=== PATIENT | male | born 1955 | race Caucasian/White ===

== ENCOUNTER 2016-08-13 14:34 | Observation (INO) | payer MEDICARE ==
[~2016-08-13] VITALS: Ht 190.5 cm; Wt 107.0 kg
--- NOTE | 2016-08-13 14:43 | PHYS DOC ---
General Chief Complaint: cp Stated Complaint: NA Time Seen by MD: 14:36 Source: patient Exam Limitations: no limitations Problems: History of Present Illness Initial Comments Patient is 61-year-old male sent to the ED by Dr. Solis for chest pain. Patient states he had influenza infection approximately one month ago. Since that time he's had fairly constant anterior chest pain described as achy and sharp moderate in intensity and worse with activity relieved with rest. He states he's also had dyspnea on exertion for approximately the same time period , he is very active and [place]. Lately just walking out to the bar and has winded him a dramatic change from before his influenza infection. He has chronic left shoulder pain is so his left shoulder neck and arm are always achy according to him he's had no nausea or diaphoresis palpitations dizziness headache or focal weakness. No history of chest pains in the past no pre-arrival treatment patient states he is normally healthy. Timing/Duration: constant, other Severity: moderate Modifying Factors: worse with movement, improves with rest Associated Symptoms: chest pain, shortness of breath Allergies: Coded Allergies: codeine (Verified Allergy, Intermediate, 08/13/16) morphine (Verified Allergy, Intermediate, 08/13/16) Past Medical History Medical History: other (diverticulitis, GERD, hypertension) Surgical History: other (colectomy with colostomy and ileostomy both been reversed, appendectomy left shoulder reconstruction) Social History Smoker: non-smoker Alcohol: none Review of Systems Constitutional: denies chills, denies diaphoresis, denies fever, malaise Respiratory: see HPI, denies cough, denies wheezing Cardiovascular: see HPI, denies palpitations, denies syncope Gastrointestinal: denies abdominal pain, denies diarrhea, denies nausea, denies vomiting Genitourinary: denies dysuria, denies frequency, denies hematuria Musculoskeletal: see HPI Psychiatric/Neurological: denies headache, denies numbness, denies paresthesia Physical Exam General Appearance: no apparent distress, obese Eyes: bilateral eye normal inspection, bilateral eye PERRL, bilateral eye EOMI Ear, Nose, Throat: hearing grossly normal, normal ENT inspection, normal pharynx Neck: non-tender, supple Respiratory: normal breath sounds, no respiratory distress Cardiovascular: normal peripheral pulses, regular rate, rhythm (chest pain is nonreproducible) Gastrointestinal: non tender, soft Back: no CVA tenderness, no vertebral tenderness Extremities: non-tender, normal inspection, no pedal edema Neurologic/Psychiatric: evaluation assistant II-XII nml as tested, no motor/sensory deficits, alert, normal mood/affect, oriented x 3 Skin: normal color, warm/dry Orders, Labs, Meds EKG: Normal sinus rhythm 68 bpm, nonspecific flattening of the T waves in lead III and aVF no STEMI interpreted by me PATIENT: KIMBERLY ALAN ACCOUNT: [id number] : 1955 LOCATION: ER AGE: 61 SEX: M EXAM STATUS: REG ER ORD. PHYSICIAN: RANDY KAPLAN DO REASON: cp PROCEDURE: PORTABLE CHEST 1V Portable chest, 08/13/2016: History: Chest pain Comparison is made to a study from 07/12/2009. The heart size and pulmonary vascularity are within normal limits. No pulmonary infiltrates are seen. There is no evidence of pleural fluid. IMPRESSION: No acute cardiopulmonary abnormality is detected. DICTATED AND SIGNED BY: ENRIQUETA NARAYAN MD DATE: 08/13/16 1520 CC: BEATRIZ HALEY MD; RANDY KAPLAN DO ~ ED workup is reassuring. Initial blood pressure 169/115, it did improve to 150 over 90s through the ED course. No new or progressive symptoms. I recommended inpatient evaluation for chest pain and dyspnea on exertion he'll need serial cardiac enzymes and echocardiogram plus or minus a stress test tomorrow after cardiology evaluation. Patient is agreeable I discussed this with Dr. Valdivia who accepts observation telemetry admission. Departure Disposition: ADMITTED INPATIENT Diagnosis: chest pain, hypertension Condition: STABLE Additional Instructions: Inpatient admission and Dr. Valdivia is accepting RANDY KAPLAN DO Aug 13, 2016 14:43
[2016-08-13] MEDS ORDERED: NITROGLYCERIN SUBLINGUAL 0.4 MG BOTTLE OF 25. SL PRN ×2 (15:15→17:00)
--- NOTE | 2016-08-13 15:24 | RAD ---
Portable chest, 08/13/2016: History: Chest pain Comparison is made to a study from 07/12/2009. The heart size and pulmonary vascularity are within normal limits. No pulmonary infiltrates are seen. There is no evidence of pleural fluid. IMPRESSION: No acute cardiopulmonary abnormality is detected.
[2016-08-13 15:26] LABS: BASO % 1 % (0-3); EOS # 0.2 x10^3/uL (0.0-0.7); EOS % 4 % (0-3); HEMATOCRIT 42.1 % (39.0-53.0); HEMOGLOBIN 14.4 g/dL (13.0-17.5); LYMPH # 2.8 x10^3/uL (1.0-4.8); LYMPH % 41 % (24-48); MEAN CORPUSCULAR HEMOGLOBIN 29 pg (25-35); MEAN CORPUSCULAR HGB CONC 34 g/dL (31-37); MEAN CORPUSCULAR VOLUME 85 fL (79-100); MONO # 0.8 x10^3/uL (0.0-1.1); MONO % 11 % (0-9); NEUT % 44 % (31-73); PLATELET COUNT 201 x10^3/uL (140-400); RED BLOOD COUNT 4.94 x10^6/uL (4.30-5.70); RED CELL DISTRIBUTION WIDTH 13.8 % (11.5-14.5); WHITE BLOOD COUNT 6.8 x10^3/uL (4.0-11.0)
[2016-08-13 15:44] LABS: ALBUMIN 3.9 g/dL (3.4-5.0); ALBUMIN/GLOBULIN RATIO 1.1 (1.0-1.7); CALCIUM 8.6 mg/dL (8.5-10.1); CREATININE 1.2 mg/dL (0.7-1.3); POTASSIUM 3.9 mmol/L (3.5-5.1); TOTAL BILIRUBIN 0.3 mg/dL (0.2-1.0); TOTAL PROTEIN 7.3 g/dL (6.4-8.2)
[2016-08-13] MEDS ORDERED: ONDANSETRON PF 4 MG/2 ML VIAL. IV PRN ×2 (17:00→18:00)
[2016-08-13] MEDS ORDERED: ACETAMINOPHEN 325 MG TABLET PO PRN (17:00)
[2016-08-13 17:39] VITALS: BP 174/101
[2016-08-13] MEDS ORDERED: KETOROLAC 30 MG/ML VIAL. IV PRN (18:00)
[2016-08-13 19:35] VITALS: BP 160/94
[2016-08-13] MEDS ORDERED: ESOM40CA PO (19:47)
[2016-08-13] MEDS ORDERED: LISI10TA2 PO (19:47)
[2016-08-13] MEDS ORDERED: TAMS0.4C97 PO (19:47)
[2016-08-13] MEDS ORDERED: TAMSULOSIN 0.4 MG CAP.ER.24H. PO SCH (21:00)
[2016-08-13 22:47] VITALS: BP 104/64
[2016-08-13] MEDS ORDERED: FISH12002 PO (23:36)
[2016-08-13] MEDS ORDERED: PRAS1TAB2 PO (23:36)
[2016-08-13] MEDS ORDERED: CHOL500016 PO (23:36)
[2016-08-13] MEDS ORDERED: ASPI-630 PO (23:36)
[2016-08-14 04:23] LABS: BASO % 1 % (0-3); EOS # 0.3 x10^3/uL (0.0-0.7); EOS % 5 % (0-3); HEMATOCRIT 40.7 % (39.0-53.0); HEMOGLOBIN 13.8 g/dL (13.0-17.5); LYMPH # 2.2 x10^3/uL (1.0-4.8); LYMPH % 39 % (24-48); MEAN CORPUSCULAR HEMOGLOBIN 29 pg (25-35); MEAN CORPUSCULAR HGB CONC 34 g/dL (31-37); MEAN CORPUSCULAR VOLUME 86 fL (79-100); MONO # 0.6 x10^3/uL (0.0-1.1); MONO % 11 % (0-9); NEUT # 2.5 x10^3uL (1.8-7.7); NEUT % 45 % (31-73); PLATELET COUNT 185 x10^3/uL (140-400); RED BLOOD COUNT 4.73 x10^6/uL (4.30-5.70); WHITE BLOOD COUNT 5.6 x10^3/uL (4.0-11.0)
--- NOTE | 2016-08-14 04:43 | EKG ---
[address] [address] Test Date: 2016-08-13 Test Time: 14:43:37 Pat Name: KIMBERLY ALAN Department: Room: 119 A Gender: M Drug Safety Physician: : 1955 Requested By: RANDY KAPLAN Order Number: [id number] Reading MD: Aldo De Anda Measurements Intervals [place] Rate: 68 P: 21 HI: 162 QRS: 26 QRSD: 86 T: 18 QT: 364 QTc: 391 Interpretive Statements SINUS RHYTHM NONSPECIFIC ST-T WAVE CHANGES. CONSISTENT WITH INFERIOR INFARCT PROBABLY OLD RI6.01 Unconfirmed report No previous ECG available for comparison Electronically Signed On 08-15-2016 9:55:06 CDT by Aldo De Anda
[2016-08-14 05:10] LABS: ALBUMIN 3.4 g/dL (3.4-5.0); CALCIUM 8.4 mg/dL (8.5-10.1); CREATININE 1.2 mg/dL (0.7-1.3); POTASSIUM 4.4 mmol/L (3.5-5.1); TOTAL BILIRUBIN 0.4 mg/dL (0.2-1.0); TOTAL PROTEIN 6.7 g/dL (6.4-8.2)
[2016-08-14 05:59] VITALS: BP 145/92
[2016-08-14] MEDS ORDERED: ASPIRIN 325 MG TABLET PO ONE (09:00)
[2016-08-14] MEDS ORDERED: LISINOPRIL 10 MG TABLET PO SCH (09:00)
[2016-08-14] MEDS ORDERED: PANTOPRAZOLE 40 MG TABLET. PO SCH (09:00)
[2016-08-14 10:42] VITALS: BP 136/84
--- NOTE | 2016-08-14 12:40 | PDOC2 ---
[facility]AN [employer] 08/14/16 1240: CONSULT Date of Admission DATE: 08/14/16 TIME: 12:27 Reason for Consult: Chest pain History of Present Illness This is a pleasant 61-year-old male who presented to his primary care doctor's office yesterday with chief complaint of chest discomfort. He has a past medical history of hypertension, gastroesophageal reflux disease and diverticulitis. Approximately a month ago he developed the flow and has not felt back to full capacity since that time. Over the last month he has had severe chest pain into his anterior wall that could feel like a sharp or stabbing sensation, it feels like a previous episode of pleurisy that he had in the past so he was not so concerned. He has also had left shoulder problems that has caused chest wall pain for long time that he tended to believe his chest pain on. But over this same time he has been more fatigued and not been able to be as active. When [place] he would notice that he would be short of breath and cannot do what he was even 6 months ago. He has also noticed that he has been having more headaches and that he gets a sensation of pressure in his head. At times the chest discomfort can feel like a pressure that is not necessarily related to activity and does not make her feel short of breath, nausea, vomiting or diaphoresis. Prior to the flu he had been drinking 2 cans of monster drink a day but has stopped and is drinking soda instead. Over the weekend he really did not feel well and finally told his , she checked his blood pressure and reported that it was 180/110. She finally talked him into going and see the doctor who referred him on to the hospital. He denies any PND, orthopnea he does have trouble sleeping and only sleeps about 5 hours a night but blames this on his restless legs. He does not snore or wake up gasping for breath. He had a stress test approximately 10 years ago and was told that it was normal, 5 years ago he underwent a cardio scan and told that they did not find any blockage. Past medical history -hypertension, diverticulitis, gastroesophageal reflux disease Past surgical history - colectomy with colostomy and ileostomy both have been reversed, appendectomy, and left shoulder reconstruction. Allergies -codeine and morphine Medications -lisinopril 10 milligrams daily, Flomax 0.4 milligrams daily and Protonix 40 milligrams daily Social history he lives at home with his he is working full-time. He denies any history of tobacco and denies any alcohol use. Family history -no known family history of premature coronary artery disease Review of systems -review of 10 organ systems is negative except for as in HPI. Physical exam GENERAL: This is a well developed, well nourished male. No apparent distress. SKIN: Warm and dry with normal skin turgor. Negative for pallor. No lesions or rashes noted. EYES: Conjunctiva are clear. Extraocular movements are intact. No xanthelasma. HEAD AND NECK: Oral mucosa is moist. There is no cyanosis. Neck is supple. Jugular venous pressure is flat. Carotid pulses are 2/2 bilaterally. No carotid bruits. There is no obvious thyromegaly. HEART: Regular rate and rhythm. Normal S1 and S2. No S3. No S4. No significant murmur. No rub. PMI is not displaced. LUNGS: Effort is good. There is symmetric expansion bilaterally. Clear to auscultation bilaterally. No wheezes. No crackles. No rhonchi. ABDOMEN: Normal active bowel sounds. Soft. Nontender. EXTREMITIES: No clubbing. No cyanosis. No edema of lower extremities. Palpable pedal pulses. MUSCULOSKELETAL: No kyphosis. No scoliosis. No localized tenderness or stiffness. Gait appears normal. NEUROLOGIC: Alert and oriented times three. Cranial nerves III-XII are grossly intact. Good motor tone and strength in the upper and lower extremities bilaterally. PSYCHOLOGIC: This is a pleasant patient with a normal affect 1. Chest pain -PA has been ruled out. He is currently symptom-free. We will plan for discharge home and outpatient stress testing. It has been scheduled for 9 a.m. tomorrow morning in our office. 2. Hypertension, uncontrolled -plan increase lisinopril to 20 milligrams daily. 3. Gastroesophageal reflux disease -continue PPI. Current Medications Current Medications Nitroglycerin (Nitrostat) 0.4 mg PRN Q5MIN PRN SL CP RATING > 1/10; Start at 15:15; Stop 08/13/16 at 18:22; Status DC Ondansetron HCl (Zofran) 4 mg PRN Q4HRS PRN IV NAUSEA/VOMITING; Start 08/13/16 at 17:00; Stop 08/13/16 at 18:23; Status DC Acetaminophen (Tylenol) 650 mg PRN Q4HRS PRN PO FEVER; Start 08/13/16 at 17:00; Stop 08/14/16 at 16:59 Nitroglycerin (Nitrostat) 0.4 mg PRN Q5MIN PRN SL CHEST PAIN; Start 08/13/16 at 17:00; Stop 08/14/16 at 16:59 Ketorolac Tromethamine (Toradol) 30 mg PRN Q6HRS PRN IV PAIN; Start 08/13/16 at 18:00; Stop 08/18/16 at 17:59 Ondansetron HCl (Zofran) 4 mg PRN Q8HRS PRN IV NAUSEA/VOMITING; Start 08/13/16 at 18:00 Lisinopril (Prinivil) 10 mg DAILY PO Last administered on 08/14/16 08:52; Start 08/14/16 at 09:00; Stop 08/14/16 at 10:07; Status DC Tamsulosin HCl (Flomax) 0.4 mg QHS PO Last administered on 08/13/16 21:16; Start 08/13/16 at 21:00 Pantoprazole Sodium (Protonix) 40 mg DAILY PO Last administered on 08/14/16 08: 52; Start 08/14/16 at 09:00 Aspirin (Thelma Aspirin) 325 mg 1X ONCE PO Last administered on 08/14/16 08:52 ; Start 08/14/16 at 09:00; Stop 08/14/16 at 09:01; Status DC Lisinopril (Prinivil) 20 mg DAILY PO ; Start 08/15/16 at 09:00 Active Scripts Active Reported Vitamin D3 (Cholecalciferol (Vitamin D3)) 5,000 Unit Tablet 1 Tab PO DAILY [place] 3-6-9 1,200 mg Softgel (Fish Oil/Borage/Flax/Om3,6,9#1) 1,200 Mg Capsule 1 ,200 Mg PO DAILY Dhea Tablet (Prasterone (Dhea)/Calcium Carb) 1 Each Tablet 1 Each PO Aspirin 81 Mg Tab.chew 81 Mg PO DAILY Flomax (Tamsulosin Hcl) 0.4 Mg Cap.er.24h 0.4 Mg PO QHS Nexium Capsule (Esomeprazole Magnesium) 40 Mg Capsule.dr 1 Cap PO DAILY Lisinopril 10 Mg Tablet 1 Tab PO DAILY Allergies: Coded Allergies: codeine (Verified Allergy, Intermediate, 08/13/16) morphine (Verified Allergy, Intermediate, 08/13/16) VITALS Vital Signs Date Time Temp Pulse Resp B/P (MAP) Pulse Ox O2 Delivery O2 Flow Rate FiO2 08/14/16 10:42 97.5 71 16 136/84 (101) 95 Room Air Labs Laboratory Tests Test 08/13/16 14:50 08/13/16 22:00 08/14/16 03:55 White Blood Count 6.8 x10^3/uL (4.0-11.0) 5.6 x10^3/uL (4.0-11.0) Red Blood Count 4.94 x10^6/uL (4.30-5.70) 4.73 x10^6/uL (4.30-5.70) Hemoglobin 14.4 g/dL (13.0-17.5) 13.8 g/dL (13.0-17.5) Hematocrit 42.1 % (39.0-53.0) 40.7 % (39.0-53.0) Mean Corpuscular Volume 85 fL (79-100) 86 fL (79-100) Mean Corpuscular Hemoglobin 29 pg (25-35) 29 pg (25-35) Mean Corpuscular Hemoglobin Concent 34 g/dL (31-37) 34 g/dL (31-37) Red Cell Distribution Width 13.8 % (11.5-14.5) 14.0 % (11.5-14.5) Platelet Count 201 x10^3/uL (140-400) 185 x10^3/uL (140-400) Neutrophils (%) (Auto) 44 % (31-73) 45 % (31-73) Lymphocytes (%) (Auto) 41 % (24-48) 39 % (24-48) Monocytes (%) (Auto) 11 % (0-9) 11 % (0-9) Eosinophils (%) (Auto) 4 % (0-3) 5 % (0-3) Basophils (%) (Auto) 1 % (0-3) 1 % (0-3) Neutrophils # (Auto) 3.0 x10^3uL (1.8-7.7) 2.5 x10^3uL (1.8-7.7) Lymphocytes # (Auto) 2.8 x10^3/uL (1.0-4.8) 2.2 x10^3/uL (1.0-4.8) Monocytes # (Auto) 0.8 x10^3/uL (0.0-1.1) 0.6 x10^3/uL (0.0-1.1) Eosinophils # (Auto) 0.2 x10^3/uL (0.0-0.7) 0.3 x10^3/uL (0.0-0.7) Basophils # (Auto) 0.0 x10^3/uL (0.0-0.2) 0.0 x10^3/uL (0.0-0.2) Prothrombin Time 10.2 SEC (9.4-11.4) Prothromb Time International Ratio 1.0 (0.9-1.1) Activated Partial Thromboplast Time 25 SEC (23-33) D-Dimer (Bee) 0.44 mg/L (0.00-0.50) Sodium Level 143 mmol/L (136-145) 143 mmol/L (136-145) Potassium Level 3.9 mmol/L (3.5-5.1) 4.4 mmol/L (3.5-5.1) Chloride Level 108 mmol/L (98-107) 109 mmol/L (98-107) Carbon Dioxide Level 27 mmol/L (21-32) 27 mmol/L (21-32) Anion Gap 8 (6-14) 7 (6-14) Blood Urea Nitrogen 15 mg/dL (8-26) 17 mg/dL (8-26) Creatinine 1.2 mg/dL (0.7-1.3) 1.2 mg/dL (0.7-1.3) Estimated GFR (Cockcroft-Gault) 62.0 62.0 BUN/Creatinine Ratio 13 (6-20) 14 (6-20) Glucose Level 106 mg/dL (70-99) 117 mg/dL (70-99) Calcium Level 8.6 mg/dL (8.5-10.1) 8.4 mg/dL (8.5-10.1) Total Bilirubin 0.3 mg/dL (0.2-1.0) 0.4 mg/dL (0.2-1.0) Aspartate Amino Transf (AST/SGOT) 40 U/L (15-37) 32 U/L (15-37) Alanine Aminotransferase (ALT/SGPT) 68 U/L (16-63) 60 U/L (16-63) Alkaline Phosphatase 72 U/L (46-116) 64 U/L (46-116) Creatine Kinase 244 U/L (39-308) Troponin I Quantitative < 0.017 ng/mL (0-0.055) < 0.017 ng/mL (0-0.055) < 0.017 ng/mL (0-0.055) Total Protein 7.3 g/dL (6.4-8.2) 6.7 g/dL (6.4-8.2) Albumin 3.9 g/dL (3.4-5.0) 3.4 g/dL (3.4-5.0) Albumin/Globulin Ratio 1.1 (1.0-1.7) 1.0 (1.0-1.7) Lipase 93 U/L (73-393) Magnesium Level 2.2 mg/dL (1.8-2.4) MORRIS WHITING Jr, MD 08/16/16 0631: CONSULT Allergies: Coded Allergies: codeine (Verified Allergy, Intermediate, 08/13/16) morphine (Verified Allergy, Intermediate, 08/13/16) Assessment/Plan The patient was seen by Umm Esteban APRN and I have reviewed her findings and plan and agree with above. Due to staffing constraints, we did not have an attending available on this day to see the patient. Problems: UMM ESTEBAN APRN Aug 14, 2016 12:40 MORRIS WHITING Jr, MD Aug 16, 2016 06:31
[2016-08-14] MEDS ORDERED: LISI-334 PO (13:30)
--- NOTE | 2016-08-14 23:51 | DS ---
DATE OF DISCHARGE: HOSPITAL COURSE: The patient was admitted yesterday with somewhat atypical chest pain. He has had 3 sets of cardiac enzymes that were negative for myocardial infarction. He has an echocardiogram done and was evaluated by the Cardiology team and they recommended that the patient discharged home to have a stress test done as an outpatient in their office. PHYSICAL EXAMINATION: GENERAL: When I saw him today, he looked well and was clearly in no apparent respiratory distress, pale, no jaundice, cyanosis, or thyromegaly. No jugular venous distention. No limb edema. VITAL SIGNS: His heart rate was 71, blood pressure 136/84, temperature was 97.5, respiratory rate was 16, and oxygen saturation was 95%. HEAD, EYES, EARS, NOSE AND THROAT: Showed normocephalic, atraumatic. NECK: Supple. HEART: Showed normal first and second heart sounds with no gallop, rub or murmur. CHEST: Clear to auscultation. No crepitation or rhonchi. ABDOMEN: Distended, soft, nontender. No guarding or rigidity. No organomegaly. Hernial orifices intact. Bowel sounds normal. NEUROLOGICAL: He was hard of hearing, but all other cranial nerves are intact. He moves extremities without difficulty, ambulates without assistance or assistive devices. LABORATORY DATA: As of this morning showed white cell count of 5600, hemoglobin 13.8, hematocrit 31, MCV 86, and platelet count of 185,000. His chemistry showed serum sodium 143, potassium 4.4, chloride 109, bicarbonate 27, anion gap of 7, BUN 17, creatinine 1.2, estimated GFR was 62 mL per minute. His glucose was 117. Calcium was 8.4, magnesium was 2.2. Total bilirubin, AST, ALT, alkaline phosphatase were normal. His 2 more sets of cardiac enzymes show troponin to be less than 0.017. Total protein 6.7, albumin 3.4. DISCHARGE MEDICATIONS: The patient was discharged home to continue on aspirin 81 mg once a day, cholecalciferol, vitamin D3 5000 units once a day, Nexium 40 mg once a day. Fish oil 1200 mg capsule once a day, 1 tablet once a day, Flomax 0.4 mg at bedtime. His lisinopril was increased to 20 mg once a day. FINAL DISCHARGE DIAGNOSES: Chest pain, myocardial infarction ruled out, has hypertension, gastroesophageal reflux disease. The patient will be seen at the Cardiology team office for nuclear stress test as an outpatient. PRADEEP HOWARD MD DR: ROJELIO/mica JOB#: [id number] / [id number]
[2016-08-15] MEDS ORDERED: LISINOPRIL 10 MG TABLET PO SCH (09:00)
--- NOTE | 2016-08-15 09:42 | HP ---
ADMIT DATE: 08/13/2016 HISTORY OF PRESENT ILLNESS: The patient is a 61-year-old male patient who came to the Emergency Room complaining of chest pain. He was actually referred from his primary care physician's office. He stated about a month ago he developed flu and has not felt ____ since that time. Over the last month, he has had severe chest pain into his anterior chest wall that did feel like sharp, stabbing. The patient felt similar to previous episode ____ that he had in the past and so he was not so concerned. He also has left shoulder problem and has got chest wall pain for longtime. At times his chest discomfort feels like pressure. He has also had some nausea, shortness of breath and diaphoresis, especially on exertion and therefore he was admitted, his blood pressure was also high and over the weekend his checked his blood pressure and was found to be 180/110, hence he finally managed to talking and to coming to the hospital and to be evaluated, and he was actually investigated in the Emergency Room. He has had his first set of cardiac enzymes ____ and therefore he was admitted ____ cardiac enzymes he took his fasting lipid profile and to consult the Cardiology team. PAST MEDICAL HISTORY: Significant for hypertension, gastroesophageal reflux disease, hyperlipidemia, benign prostatic hypertrophy. He also has a previous history of diverticulitis and restless leg syndrome. PAST SURGICAL HISTORY: Significant for partial colectomy, colostomy, ileostomy and takedown. He had surgery on his left shoulder. ALLERGIES: HE IS INTOLERANT TO CODEINE AND MORPHINE. MEDICATIONS: He is currently on following medications: Aspirin 81 mg once a day, cholecalciferol, vitamin D3 5000 units once a day, Nexium 40 mg once a day, fish oil 1200 mg once a day, lisinopril 10 mg once a day, ____ calcium carbonate once a day, and Flomax 0.4 mg at bedtime. FAMILY HISTORY: He has 1 younger brother with type 1 diabetes, at the age of 54 and has had 4 episodes of myocardial infarction; has 2 older sisters, one has coronary artery disease and had 2 stents and the other one has severe mitral prolapse, and he has 1 younger sister who is healthy. His mother is still alive at age of 85 and is known to have heart attack before. He does not know his biological father. SOCIAL HISTORY: He is , has a son and daughter. He never smoked, does not drink alcohol or use recreational drugs. REVIEW OF SYSTEMS: The patient denied any blurring of vision, cataract, glaucoma or macular degeneration. The patient denied any earache, tinnitus or sensorineural deafness. Denied any nosebleeds, stuffy nose or postnasal drip. Denied any sore throat, sore tongue, toothache, hoarseness of voice or difficulty swallowing. He denied any nausea, vomiting, diarrhea or constipation. Denied any hematemesis, melena or hematochezia. Denied any dysuria, frequency or hematuria. He did complain of shortness of breath. Denied any cough, phlegm or hemoptysis. He did complain of some episodes of dizziness and lightheadedness, but denied any chills, rigors or fever. PHYSICAL EXAMINATION: GENERAL: On arrival to the Emergency Room, he looked well and was clearly in no apparent respiratory distress. There was no pallor, jaundice, cyanosis, or thyromegaly. No jugular venous distension. No limb edema. VITAL SIGNS: His heart rate was 70, blood pressure was 178/101, temperature was 98, respiratory rate was 18, and oxygen saturation was 96%. HEAD, EYES, EARS, NOSE AND THROAT: Showed normocephalic, atraumatic. NECK: Supple. HEART: Showed normal first and second heart sounds with no gallop, rub or murmur. CHEST: Clear to auscultation. No crepitation or rhonchi. ABDOMEN: Distended, soft, nontender. No guarding or rigidity. No organomegaly. Hernial orifices intact. Bowel sounds normal. NEUROLOGIC: He was awake, alert, responding appropriately. Cranial nerves are intact. He is very hard of hearing, but all other cranial nerves are intact. He moves extremities without difficulty, ambulates without assistance or assistive devices. LABORATORY DATA: His lab work in the Emergency Room showed a serum sodium 143, potassium 3.9, chloride 108, bicarbonate 27, anion gap of 8, BUN 15, creatinine 1.2, estimated GFR was 62 mL per minute. His glucose was 106, calcium was 8.6. Total bilirubin and alkaline phosphatase is normal. AST and ALT is slightly elevated. His CK was ____, and his first troponin was 0.017. His total protein was 7.3, albumin 3.9, lipase was 93. White cell count was 6800, hemoglobin 14.4, hematocrit 42, MCV 85, and platelet count ____ with normal manual differential. His prothrombin time was 10.2, INR 1, APTT 25, and D-dimer was 0.44 mg/dL. His chest x-ray showed no acute cardiopulmonary abnormality detected. The heart size and pulmonary vascularity are within normal limits. There is no pulmonary infiltrates. No pneumothorax or pleural effusion. His EKG showed that he has normal sinus rhythm with no evidence of any ST segment elevation or depression. The patient will be admitted. We will do 2 more sets of cardiac enzyme, consult the Cardiology team and check his fasting lipid profile to rule out myocardial infarction. PRADEEP HOWARD MD DR: ROJELIO/mica JOB#: [id number] / [id number]
--- NOTE | 2016-08-15 11:03 | CARD ---
APPROVED REPORT EXAM: Two-dimensional and M-mode echocardiogram with Doppler and color Doppler. Other Information Quality : GoodHR: 72bpm INDICATION Chest pain 2D DIMENSIONS RVDd2.9 (2.9-3.5cm)Left Atrium(2D)4.0 (1.6-4.0cm) IVSd1.0 (0.7-1.1cm)Aortic Root(2D)3.3 (2.0-3.7cm) LVDd5.1 (3.9-5.9cm)LVOT Diameter2.3 (1.8-2.4cm) PWd1.0 (0.7-1.1cm)LVDs3.4 (2.5-4.0cm) FS (%) 32.5 %SV74.2 ml LVEF(%)60.5 (>50%) Aortic Valve AoV Peak Robin.159.0cm/sAoV VTI29.9cm AO Peak GR.10.1mmHgLVOT Peak Robin.99.7cm/s LVOT VTI 22.14cmAO Mean GR.5mmHg MIRYAM (VMAX)2.37zm6IZH (VTI)3.04cm2 Mitral Valve MV E Fjbdghgu65.0cm/sMV E Peak Gr.3mmHg MV DECEL [id number] A Oactysrc12.9cm/s MV E Mean Gr.1mmHgE/A Ratio0.8 MV A [id number] Pulmonary Valve PV Peak Zgruktim70.1cm/sPV Peak Grad.4mmHg Tricuspid Valve TR P. Ryoqnfof206ge/sTR Peak Gr.43mmHg Pulmonary Vein S1 Bfdadnot20.6cm/sD2 Dcegvdpb09.4cm/s LEFT VENTRICLE The left ventricle is normal size. There is normal left ventricular wall thickness. The left ventricu lar systolic function is normal and the ejection fraction is within normal range. The Ejection Fracti on is 60-65%. There is normal LV segmental wall motion. Transmitral Doppler flow pattern is Grade I-a bnormal relaxation pattern. RIGHT VENTRICLE The right ventricle is normal size. There is normal right ventricular wall thickness. The right ventr icular systolic function is normal. ATRIA The left atrium size is normal. The right atrium size is normal. The interatrial septum is intact wit h no evidence for an atrial septal defect or patent foramen ovale as noted on 2-D or Doppler imaging. AORTIC VALVE The aortic valve is mildly thickened. The aortic valve is trileaflet. Doppler and Color Flow revealed no significant aortic regurgitation. There is no significant aortic valvular stenosis. MITRAL VALVE The mitral valve leaflets are mildly thickened. There is no evidence of mitral valve prolapse. There is no mitral valve stenosis or regurgitation. TRICUSPID VALVE Doppler and Color Flow revealed trace to mild tricuspid regurgitation. The pulmonary artery systolic pressure is estimated at 47 mmHg. There is mild-moderate pulmonary hypertension. PULMONIC VALVE Doppler and Color Flow revealed no pulmonic valvular regurgitation. There is no pulmonic valvular ale nosis. GREAT VESSELS The aortic root is normal in size. The ascending aorta is normal in size. The pulmonary artery is nor mal. The IVC is not well visualized PERICARDIAL EFFUSION There is no evidence of significant pericardial effusion. Critical Notification Critical Value: No <Conclusion> The left ventricular systolic function is normal and the ejection fraction is within normal range. The Ejection Fraction is 60-65%. Transmitral Doppler flow pattern is Grade I-abnormal relaxation pattern. The left atrium size is normal. The pulmonary artery systolic pressure is estimated at 47 mmHg. There is mild-moderate pulmonary hypertension. The IVC is not well visualized
== END 2016-08-14 14:01 | disposition home or self-care (01) ==
LOC: ER 14:34 → 1 SOUTH 16:55
PROVIDERS: ADMIT Internal Medicine; ATTEND Internal Medicine
DX: R07.9 Chest pain, unspecified (principal); I10 Essential (primary) hypertension; K21.9 Gastro-esophageal reflux disease without esophagitis; G89.29 Other chronic pain; G25.81 Restless legs syndrome; Z93.3 Colostomy status
CPT/HCPCS: 36415; 71010; 80053; 80061; 82550; 83690; 83735; 84484; 85027; 85379; 85610; 85730; 93005; 93306; 99285; G0378; G0379